=== PATIENT | male | born 1950 | race Caucasian/White ===

== ENCOUNTER 2016-12-26 07:50 | Emergency (ER) | payer MEDICARE ==
[2016-12-26 07:56] VITALS: BP 152/77
--- NOTE | 2016-12-26 08:12 | UC ---
General HPI - HPI Summary HPI Summary: complaint of rash on left flank that he noticed yesterday rash is slightly itchy can't recall any insect bite denies fever or fatigue - History of Current Complaint Chief Complaint: UCRas Stated Complaint: BUG BITE W/BULLSEYE RASH Time Seen by Provider: 12/26/16 08:06 - Allergy/Home Medications Allergies/Adverse Reactions: Allergies Allergy/AdvReac Type Severity Reaction Status Date / Time apples Allergy Mild Rash Uncoded 12/26/16 07:57 carrots Allergy Mild See Comment Uncoded 12/26/16 07:57 PMH/Surg Hx/FS Hx/Imm Hx Previously Healthy: Yes - seasonal allergies - Surgical History Surgical History: Yes - acousticneuroma - Family History Known Family History: Positive: Hypertension - Social History Occupation: Employed Full-time Lives: With Family Alcohol Use: Rare Substance Use Type: None Smoking Status (MU): Never Smoked Tobacco Have You Smoked in the Last Year: No Review of Systems Constitutional: Negative Skin: Rash Eyes: Negative ENT: Negative Respiratory: Negative Cardiovascular: Negative Gastrointestinal: Negative Genitourinary: Negative Motor: Negative Neurovascular: Negative Musculoskeletal: Negative Neurological: Negative Psychological: Negative All Other Systems Reviewed And Are Negative: Yes Physical Exam Triage Information Reviewed: Yes Appearance: Well-Nourished, Thin Vital Signs: Initial Vital Signs Temp 98.1 F 12/26/16 07:54 Pulse 79 12/26/16 07:54 Resp 20 12/26/16 07:54 BP 152/77 12/26/16 07:54 Pulse Ox 98 12/26/16 07:54 Vital Signs Reviewed: Yes Eyes: Positive: Conjunctiva Clear ENT: Positive: Pharynx normal, TMs normal Neck: Positive: No Lymphadenopathy Respiratory: Positive: Lungs clear, Normal breath sounds, No respiratory distress Cardiovascular: Positive: RRR, No Murmur, Pulses Normal Abdomen Description: Positive: Nontender, Soft Bowel Sounds: Positive: Present Musculoskeletal: Positive: No Edema Neurological: Positive: Alert Psychological Exam: Normal Skin: Positive: rashes - [id number] bulleye rash on left flank Course/Dx - Course Course Of Treatment: exam completed. rash-erythema migrans- will start course of doxycycline and patient will followup with PCP - Differential Dx - Multi-Symptom Differential Diagnoses: Other - erythema migrans Provider Diagnoses: erythema migrans. elevated blood pressure Discharge - Discharge Plan Condition: Stable Disposition: HOME Prescriptions: DOXYcycline CAP(*) [DOXYcycline 100MG CAP(*)] 100 mg PO BID #42 cap Patient Education Materials: Lyme Disease (ED), Tick Bite (ED) Referrals: Logan Cedeno MD [Primary Care Provider] - Additional Instructions: Please start antibiotic as directed Increase fluids and rest Take acetaminophen or ibuprofen for fever or pain Please review your discharge instructions. If your symptoms do not improve please call your primary care provider or return to urgent care. Your blood pressure is elevated. Please contact your primary care provider within 1 -4 weeks for further evaluation.
== END 2016-12-26 08:23 | disposition home or self-care (01) ==
LOC: UCEAST 07:50
DX: A26.0 Cutaneous erysipeloid (principal); R03.0 Elevated blood-pressure reading, without diagnosis of hypertension
CPT/HCPCS: 99212; G0463

== ENCOUNTER 2018-05-27 11:23 | Emergency (ER) | payer MEDICARE ==
--- NOTE | 2018-05-27 11:41 | UC ---
Eye Complaint HPI - HPI Summary HPI Summary: 68 y/o male presents to the urgent care c/o Rt lower eyelid w/ redness and tender at touch since yesterday. Pt is concerned about conjunctivitis since he has a wedding tomorrow. pain at touch in mild 2/10 and associated w/ discrete swelling and mild nasal clear discharge. He has Hx o seasonal allergies. Pt denies fever, FLEMING, eye discharge, photophobia, dizziness, SOB, chest pain, abdominal pain, N/V/D. - History of Current Complaint Stated Complaint: EYE ISSUE Time Seen by Provider: 05/27/18 11:39 Hx Obtained From: Patient Onset/Duration: Gradual Onset, Lasting Days - 1 day, Still Present, Worse Since - today Timing: Constant Severity Initially: Mild Severity Currently: Mild Pain Intensity: 2 Pain Scale Used: 0-10 Numeric Location of Injury: Eye Lid (lower) - RT lower eyelid Character: Dull Aggravating Factor(s): Other - touch Alleviating Factor(s): Nothing Associated Signs And Symptoms: Positive: Swelling - mild. Negative: Photophobia , Drainage (Clear), Drainage (Purulent), Vision Impairment Bilateral, Fever - Risk Factors Penetrating Injury Risk Factor: Negative Globe Rupture Risk Factors: Negative Acute Glaucoma Risk Factors: Negative Optic Artery Occlusion Risk Factors: Negative - Allergies/Home Medications Allergies/Adverse Reactions: Allergies Allergy/AdvReac Type Severity Reaction Status Date / Time apples Allergy Mild Rash Uncoded 05/27/18 11:44 carrots Allergy Mild See Comment Uncoded 05/27/18 11:44 PMH/Surg Hx/FS Hx/Imm Hx Previously Healthy: Yes Other Respiratory History: seasonal allergies. 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 - Surgical History Surgical History: Yes Surgery Procedure, Year, and Place: GAMMA KNIFE - Family History Known Family History: Positive: Cardiac Disease, Hypertension Family History: lymphoma, endometrial cancer - Social History Occupation: Retired Lives: With Family Alcohol Use: Rare Substance Use Type: None Smoking Status (MU): Never Smoked Tobacco Have You Smoked in the Last Year: No Review of Systems All Other Systems Reviewed And Are Negative: Yes Constitutional: Positive: Negative Skin: Positive: Negative Eyes: Positive: Eye Redness - RTlower eyelid red and painful ENT: Positive: Nasal Discharge - clear Respiratory: Positive: Negative Cardiovascular: Positive: Negative Gastrointestinal: Positive: Negative Genitourinary: Positive: Negative Motor: Positive: Negative Neurovascular: Positive: Negative Musculoskeletal: Positive: Negative Neurological: Positive: Negative Psychological: Positive: Negative Is Patient Immunocompromised?: No Physical Exam - Summary Physical Exam Summary: Vital Signs Reviewed: Yes General: Well appearing, well nourished male in no apparent pain distress Eyes: Positive: Conjunctiva Inflamed - Visual acuity: WNL,Visual guillen: full to confrontation.mild periorbital soft tissue swellingat the medial aspect of RTlower eyelid with erythema and white small pustule in the medial side of eyelid, tender to palpation. PERRLA, EOMI intact w/out limitation or complaint of pain. eyelashes clear. mild tearing and clear drainage observed. No ciliary flush. No chemosis, No photophobia. Normal fundoscopic exam; no proptosis, exophthalmos, nystagmus. ENT: Positive: Normal ENT inspection, Hearing grossly normal, Pharynx normal, Nasal congestion, Nasal drainage - clear, TMs normal - B/L external ear canal clear , TM's WNL. Negative: Tonsillar swelling, Tonsillar exudate Neck: Positive: Supple, Nontender, No Lymphadenopathy Respiratory: Positive: Chest nontender, Lungs clear, Normal breath sounds, No respiratory distress Cardiovascular: Positive: RRR, No Murmur, Pulses Normal, Brisk Capillary Refill Abdomen Description: Positive: Nontender, No Organomegaly, Soft. Negative: CVA Tenderness (R), CVA Tenderness (L) Bowel Sounds: Positive: Present Musculoskeletal: Positive: Strength Intact, ROM Intact, No Edema Neurological Exam: Normal Psychological Exam: Normal Skin Exam: Normal Triage Information Reviewed: Yes Eye Complaint Course/Dx - Course Course Of Treatment: 68 y/o male presents to the urgent care c/o Rt lower eyelid w/ redness and tender at touch since yesterday. Pt is concerned about conjunctivitis since he has a wedding tomorrow. pain at touch in mild 2/10 and associated w/ discrete swelling and mild nasal clear discharge. He has Hx o seasonal allergies. Pt denies fever, FLEMING, eye discharge, photophobia, dizziness, SOB, chest pain, abdominal pain, N/V/D.Hx obtained.Pt with a RT medial aspect of lower eyelid w/ an internal hordeolum on examination. Pt Rx Bacitracin Ophthalmic Ointment. Mother advised to apply warm compresses and massage the eye with gentle pressure 4-5 times for 10-15min throughout the day. Then apply ABX and if not improvement of symptoms to f/u with supervisor ski production Dr Garcia for further evaluation and treatment. Your BP is elevated today. please decrease salt in your diet, monitor BP and if it continues to be elevated please f/u with your PCP for further management. D/C instructions explained. Pt understood and agreed with plan of care. - Differential Dx/Diagnosis Differential Diagnosis/HQI/PQRI: Conjunctivitis, Corneal Abrasion, Periorbital Cellulitis, Orbital Cellulitis Provider Diagnosis: Hordeolum of right lower eyelid, Elevated BP without diagnosis of hypertension Discharge - Sign-Out/Discharge Documenting (check all that apply): Patient Departure - d/c home All imaging exams completed and their final reports reviewed: No Studies - Discharge Plan Condition: Stable Disposition: HOME Prescriptions: Erythromycin OPTH OINT* [Erythromycin 0.5% OPTH OINT*] 1 applic RIGHT EYE TID # 1 ophth.oint Patient Education Materials: Stye (ED), Low-Sodium Diet (ED) Referrals: Mimi Smith MD [Primary Care Provider] - 3 Days Iglesia Garcia MD [Medical Doctor] - If Needed Additional Instructions: 1-Please apply ophthalmic ointment in your RT lower eyelid as directed. Please apply warm compresses and massage the eye with gentle pressure 4-5 times for 10-15min throughout the day 2- If you do not improve or if symptoms worsen please f/u with supervisor ski production Dr Garcia in 3 days for further evaluation and treatment 3- Your BP is elevated today. please decrease salt in your diet, monitor BP and if it continues to be elevated please f/u with your PCP for further management - Billing Disposition and Condition Condition: STABLE Disposition: Home
[2018-05-27 11:44] VITALS: BP 141/80
== END 2018-05-27 12:11 | disposition home or self-care (01) ==
LOC: UCEAST 11:23
DX: H00.012 Hordeolum externum right lower eyelid (principal); R03.0 Elevated blood-pressure reading, without diagnosis of hypertension
CPT/HCPCS: 99212; G0463

== ENCOUNTER 2019-09-24 11:42 | Emergency (ER) | payer MEDICARE ==
[2019-09-24] MEDS ORDERED: NS 0.9% 1000 ML** 1,000 ML IV ONE (11:47)
--- NOTE | 2019-09-24 11:48 | ED ---
Back Pain - HPI Summary HPI Summary: Pt. is a 69 y.o male who presents to the ER for acute onset of right sided flank pain and vomiting that started today. Pt. notes he has had kidney stones in the past and pain feels similar. Denies fever, cough, SOB, CP. No past medical hx. Sxs are moderate in severity. No current modifying factors. - History of Current Complaint Chief Complaint: EDFlankPain Stated Complaint: FLANK PAIN PER PT Time Seen by Provider: 09/24/19 11:46 Hx Obtained From: Patient Pain Intensity: 10 - Allergies/Home Medications Allergies/Adverse Reactions: Allergies Allergy/AdvReac Type Severity Reaction Status Date / Time carrot Allergy Unknown See Comment Verified 09/24/19 12:12 adhesive Allergy Rash Verified 09/24/19 11:44 apple Allergy Rash Verified 09/24/19 12:12 Home Medications: Home Medications Cetirizine* [ZyrTEC 10 MG TAB*] 10 mg PO DAILY 10/11/15 [History Confirmed 09/23] Ondansetron TAB* [Zofran 4 MG Tab*] 4 mg PO Q6H PRN #12 tab 09/24/19 [Rx] Tamsulosin CAP* [Flomax CAP*] 0.4 mg PO DAILY #5 cap 09/24/19 [Rx] oxyCODONE/Acetamin 5/325 MG* [Percocet 5/325 TAB*] 1 tab PO Q6H PRN 3 Days #12 tab MDD 4 09/24/19 [Rx] PMH/Surg Hx/FS Hx/Imm Hx Previously Healthy: Yes Endocrine/Hematology History: Denies: Hx Diabetes Cardiovascular History: Denies: Hx Hypertension, Hx Pacemaker/ICD Respiratory History: Denies: Hx Asthma History: Denies: Hx Renal Disease Musculoskeletal History: Denies: Hx Osteoporosis Sensory History: Reports: Hx Hearing Aid Psychiatric History: Denies: Hx Panic Disorder - Surgical History Surgery Procedure, Year, and Place: GAMMA KNIFE Infectious Disease History: No Infectious Disease History: Reports: Hx Shingles Denies: Traveled Outside the [place] in Last 30 Days - Family History Known Family History: Positive: Cardiac Disease, Hypertension, Non-Contributory Family History: lymphoma, endometrial cancer - Social History Occupation: Retired Lives: Alone Alcohol Use: Rare Substance Use Type: Reports: None Smoking Status (MU): Never Smoked Tobacco Have You Smoked in the Last Year: No Review of Systems Constitutional: Negative Negative: Fever, Chills Cardiovascular: Negative Negative: Palpitations, Chest Pain Respiratory: Negative Negative: Shortness Of Breath, Cough Positive: Abdominal Pain, Vomiting, Nausea. Negative: Diarrhea Positive: flank pain Neurological/Mental Status: Negative Negative: Weakness, Paresthesia, Numbness All Other Systems Reviewed And Are Negative: Yes Physical Exam Triage Information Reviewed: Yes Vital Signs On Initial Exam: Initial Vitals Temp Pulse Resp BP Pulse Ox 97.6 F 91 16 217/105 99 09/24/19 11:43 09/24/19 11:43 09/24/19 11:43 09/24/19 11:43 09/24/19 11:43 Vital Signs Reviewed: Yes Appearance: Positive: Pain Distress - Pt. lying on bed, in pain but nontoxic. Skin: Positive: Warm, Dry Head/Face: Positive: Normal Head/Face Inspection Eyes: Positive: Normal, EOMI Neck: Positive: Supple Respiratory/Lung Sounds: Positive: Clear to Auscultation, Breath Sounds Present Cardiovascular: Positive: Normal, RRR Abdomen Description: Positive: Nontender, Soft, CVA Tenderness (R) Musculoskeletal: Positive: Normal, Strength/ROM Intact Neurological: Positive: Normal, CN Intact II-III Psychiatric: Positive: Affect/Mood Appropriate Procedures - Sedation Patient Received Moderate/Deep Sedation with Procedure: No Diagnostics - Vital Signs Vital Signs Temp Pulse Resp BP Pulse Ox 09/24/19 11:43 97.6 F 91 16 217/105 99 - Laboratory Result Diagrams: 09/24/19 11:57 09/24/19 11:57 Lab Statement: Any lab studies that have been ordered have been reviewed, and results considered in the medical decision making process. Back Pain Course/Dx - Course Course Of Treatment: Pt. with acute flank pain and N/V. Afebrile. BP elevated. Suspect urolithiasis. Pt. given iv fluids, zofran, toradol, morphine. ECG done at 1218 shows a sinus rhythm of 75bpm, normal axis, appropriate intervals, no STEMI. CT abd/pelvis per radiology: IMPRESSION: There is a 6 mm calculus proximal right ureter at the L3-L4 level causing. moderate degree of right hydronephrosis and proximal hydroureter. Left kidney shows no. hydronephrosis. Labs show minimal elevation in WBC of 11.2. Mildly elevated lactic. U/A negative for infection. On re-exam pt. feeling better and pain is minimal at this time. Case discussed with Dr. Moss. Will plan for dc home to [facility] with urology. Percocet, zofran and flomax rx. Pt. comfortable with dc home. Strainer given. Pt. will return to er for uncontrollable pain/vomiting, fever, or if concerned. Pt. understands and agrees with plan. - Diagnoses Differential Diagnosis/HQI/PQRI: Positive: Renal Colic, Strain, Sprain Provider Diagnoses: Urolithiasis Discharge ED - Sign-Out/Discharge Documenting (check all that apply): Patient Departure - Discharge Plan Condition: Improved Disposition: HOME Prescriptions: Ondansetron TAB* [Zofran 4 MG Tab*] 4 mg PO Q6H PRN #12 tab PRN Reason: Nausea oxyCODONE/Acetamin 5/325 MG* [Percocet 5/325 TAB*] 1 tab PO Q6H PRN 3 Days #12 tab MDD 4 PRN Reason: Pain Tamsulosin CAP* [Flomax CAP*] 0.4 mg PO DAILY #5 cap Patient Education Materials: Kidney Stones (ED) Referrals: Mimi Smith MD [Primary Care Provider] - Mikael Amaro MD [Medical Doctor] - Additional Instructions: Call the urology clinic tomorrow to schedule a follow up appointment if pain persist Rotate between percocet and motrin 400mg every 3 hours for pain control Increase fluids Strain urine Return to ER for uncontrollable pain, vomiting, fever, or if concerned - Billing Disposition and Condition Condition: IMPROVED Disposition: Home
[2019-09-24] MEDS ORDERED: Ondansetron INJ* 2 MG/ML VIAL IV ONE (11:49)
[2019-09-24] MEDS ORDERED: Ketorolac INJ* 30 MG/ML 1 ML VIAL IV PUSH ONE (11:49)
[2019-09-24] MEDS ORDERED: Morphine 4 MG/ML VIAL (1 ml) 4 MG/ML VIAL IV ONE ×2 (11:52→12:43)
[2019-09-24 12:06] LABS: ABS Basophils 0.1 10^3/ul (0-0.2); ABS Lymphocytes 1.1 10^3/ul (1.0-4.8); ABS Monocytes 0.5 10^3/ul (0-0.8); ABS Neutrophils 9.5 10^3/ul (1.5-7.7); Eosinophil % 0.2 %; Hematocrit 45 % (42-52); Hemoglobin 15.1 g/dL (14.0-18.0); Mean Corpuscular HGB Conc 33 g/dL (31-36); Mean Corpuscular Hemoglobin 29 pg (27-31); Mean Corpuscular Volume 87 fL (80-94); Mean Platelet Volume 8.1 fL (7.4-10.4); Platelet Count 223 10^3/uL (150-450); Red Blood Count 5.24 10^6 /uL (4.18-5.48); Red Cell Distribution Width 13 % (10-15); White Blood Count 11.2 10^3/uL (3.5-10.8)
[2019-09-24 12:23] LABS: ALT 14 U/L (7-52); AST 18 U/L (13-39); Albumin 4.1 g/dL (3.2-5.2); Albumin/Globulin Ratio 1.4 (1-3); Alkaline Phosphatase 89 U/L (34-104); Anion Gap 10 mmol/L (2-11); BUN/Creatinine Ratio 17.1 (8-20); Blood Urea Nitrogen 19 mg/dL (6-24); C Reactive Protein < 1.00 mg/L (<8.01); CO2 Carbon Dioxide 25 mmol/L (22-32); Chloride 102 mmol/L (101-111); EGFR Non-African American 65.3 (>60); Glucose 134 mg/dL (70-100); Potassium 4.1 mmol/L (3.5-5.0); Sodium 137 mmol/L (135-145); Total Protein 7.1 g/dL (6.4-8.9)
[2019-09-24 13:11] LABS: Urine Appearance Clear; Urine Bilirubin Negative (Negative); Urine Blood 2+ (Negative); Urine Color Yellow; Urine Glucose Negative (Negative); Urine Ketones Trace (Negative); Urine Nitrite Negative (Negative); Urine Protein Negative (Negative); Urine Specific Gravity 1.013 (1.010-1.030); Urine Urobilinogen Negative (Negative)
[2019-09-24 13:13] LABS: Urine Bacteria Absent (Absent); Urine Red Blood Cell 3+(>10/hpf) (Absent); Urine White Blood Cell Trace(0-5/hpf) (Absent)
[2019-09-24 14:52] VITALS: BP 137/67
== END 2019-09-24 14:51 | disposition home or self-care (01) ==
LOC: ED 11:42
DX: N20.9 Urinary calculus, unspecified (principal); R10.84 Generalized abdominal pain; R11.2 Nausea with vomiting, unspecified
CPT/HCPCS: 36415; 74176; 80053; 81003; 81015; 83605; 85025; 86140; 87086; 93005; 96361; 96374; 96375; 96376; 99283; J1885; J2270; J2405

== ENCOUNTER 2019-09-29 08:26 | Day surgery (SDC) | payer MEDICARE ==
--- NOTE | 2019-09-28 09:31 | HP ---
CC: Dr. Smith * ADMITTING HISTORY AND PHYSICAL: DATE OF ADMISSION: 09/29/19 ADMITTING DIAGNOSES: 1. Calculus, right proximal ureter. 2. Right hydronephrosis. PLANNED PROCEDURE: Right ureteroscopy, possible laser and stent insertion ( possibly to be followed in the near future by shockwave lithotripsy). SURGEON: Dr. Richmond. HISTORY OF PRESENT ILLNESS: Daniel Garcia is a 69-year-old gentleman who has had episodic right flank pain and nausea for the last 3 to 4 days. He had initially been evaluated in the emergency department and a CT had revealed an obstructing 6 mm calculus in the proximal right ureter. He has been managed conservatively and continues to have episodic flank pain and is now being brought in for further management of the calculus. Because of the proximal location of the calculus, I have explained to him that he may end up requiring a 2-stage procedure with initial stent insertion to be followed later on by shockwave lithotripsy or laser lithotripsy. PAST MEDICAL HISTORY: Significant for renal calculus affecting the left kidney about 7 to 8 years ago. PAST SURGICAL HISTORY: Negative. MEDICATIONS ON ADMISSION: Flonase p.r.n. ALLERGIES: No known drug allergies. FAMILY HISTORY: His father and 2 younger brothers all have had kidney stones. SOCIAL HISTORY: Smoking history: He is a nonsmoker. REVIEW OF SYSTEMS: He is otherwise in excellent health. There is no history of diabetes mellitus or any other major systemic illness. He is fairly active physically and denies any chest pain or shortness of breath. PHYSICAL EXAMINATION GENERAL: Reveals a pleasant, healthy-appearing gentleman. VITAL SIGNS: Blood pressure is 110/80, pulse 83 per minute and regular, temperature 96.6, oxygen saturation 98% on room air. LUNGS: Clear bilaterally. CARDIOVASCULAR: Regular rate and rhythm. S1, S2. ABDOMEN: Soft with right flank tenderness. IMPRESSION: A 69-year-old gentleman with a calculus in the proximal right ureter causing episodic right flank pain and nausea and right hydronephrosis. PLAN: Planned procedure is right ureteroscopy, possible laser and stent insertion. [id number]/CPS #: [id number] MTDD
[~2019-09-29 08:26] MED LIST: Buffered Lidocaine 1% SYRIN* 1 ML/SYRINGE INTRADERM ONE; Dexamethasone IV* 4 MG/ML 1 ML (4 MG) IV SLOW PU ONE; Famotidine IV* 10 MG/ML 2 ML (20 mg) IV ONE; Lactated Ringers 1000 ML Bag* 1,000 ML IV SCH
[2019-09-29] MEDS ORDERED: Iohexol 180 (CONTRAST) 10 ML SDV IV ONE (08:56)
[2019-09-29] MEDS ORDERED: Dexamethasone IV* 4 MG/ML 1 ML (4 MG) ONE (09:07)
[2019-09-29] MEDS ORDERED: cefTRIAXone(*) 2 GM ADDV.VIAL IVPB ONE (09:07)
[2019-09-29] MEDS ORDERED: Buffered Lidocaine 1% SYRIN* 1 ML/SYRINGE INTRADERM ONE (09:08)
[2019-09-29] MEDS ORDERED: Famotidine IV* 10 MG/ML 2 ML (20 mg) ONE (09:08)
[2019-09-29] MEDS ORDERED: fentaNYL* 50 MCG/ML 2 ML VIAL (100 MCG VIAL) ONE (09:24)
[2019-09-29] MEDS ORDERED: Midazolam* 1 MG/ML 2 ML VIAL (2 MG) ONE ×2 (09:24→09:54)
[2019-09-29] MEDS ORDERED: Chloroprocaine 2%* 20 ML VIAL ONE (09:26)
[2019-09-29] MEDS ORDERED: Propofol* 10 MG/ML 20 ML BTL ONE (10:25)
[2019-09-29] MEDS ORDERED: Ondansetron INJ* 2 MG/ML VIAL IV PRN (10:41)
[2019-09-29] MEDS ORDERED: Naloxone* 0.4 MG/ML 1 ML VIAL IV PRN (10:41)
[2019-09-29] MEDS ORDERED: fentaNYL* 50 MCG/ML 2 ML VIAL (100 MCG VIAL) IV PRN (10:41)
[2019-09-29] MEDS ORDERED: Ketorolac INJ* 30 MG/ML 1 ML VIAL IV PRN (10:41)
[2019-09-29] MEDS ORDERED: Tamsulosin CAP* 0.4 MG ONE (10:58)
--- NOTE | 2019-09-29 11:43 | OP ---
CC: Dr. Mimi Smith * DATE OF OPERATION: 09/29/19 - [facility] DATE OF : 46 SURGEON: Dustin Richmond MD ANESTHESIOLOGIST: Dr. Sands. ANESTHESIA: Spinal. PRE-OP DIAGNOSES: 1. Calculus, right proximal ureter. 2. Right hydronephrosis. POST-OP DIAGNOSES: 1. Calculus, right proximal ureter. 2. Right hydronephrosis. OPERATIVE PROCEDURES: Cystoscopy, right retrograde pyelogram, right ureteroscopy and stone manipulation, and right stent insertion. COMPLICATIONS: None. POSTOPERATIVE CONDITION: Stable. STENT USED: 7-Austrian stent, right ureter. OPERATIVE FINDINGS: 1. Moderately enlarged prostate with increased vascularity noted at bladder neck. 2. Moderately trabeculated bladder. 3. [id number] hydronephrosis with a fairly narrow right ureter noted. INDICATIONS: Daniel Garcia Jr. is a 69-year-old gentleman, who has had episodic right flank pain secondary to an obstructing calculus in the right proximal ureter. DESCRIPTION OF PROCEDURE: After induction of spinal anesthesia, the patient was placed in dorsal lithotomy position. Sequential compression devices were in place and functioning. Initial cystoscopy revealed a normal appearing urethra , moderately enlarged prostate with increased vascularity at the bladder neck and trigone. The bladder is moderately trabeculated with no evidence of any suspicious lesions noted. I noted that the orifice of the right ureter was fairly narrow. A guidewire was introduced into it and I actually had to use open-ended catheter just to dilate the orifice initially. Retrograde pyelogram revealed [id number] right hydronephrosis with a dilated proximal ureter. A 6-Austrian semi-rigid ureteroscope was introduced and advanced under direct vision. The ureteroscope was advanced into the distal ureter, which was extremely narrow and considering that the calculus was proximal, I did not think it would be feasible to easily do a ureteroscopy without traumatizing the ureter. The ureteroscope was carefully withdrawn under vision and I elected to proceed a 7-Austrian stent, which was successfully placed under fluoroscopic monitoring with good proximal and distal positioning obtained. My feeling is that the calculus likely migrated proximally with the ureteroscopy and irrigation and my plan is to obtain an x-ray to assess that. A Mason catheter was placed for temporary bladder drainage. The patient tolerated the procedure satisfactorily and was transferred back to the recovery area in stable condition. [id number]/CPS #: [id number] MTDD
[2019-09-29 12:47] VITALS: BP 163/91
== END 2019-09-29 13:42 | disposition home or self-care (01) ==
LOC: OR 08:26
PROVIDERS: ATTEND Urology
DX: N13.2 Hydronephrosis with renal and ureteral calculous obstruction (principal); N40.0 Benign prostatic hyperplasia without lower urinary tract symptoms; N32.89 Other specified disorders of bladder; Z87.442 Personal history of urinary calculi; Z87.898 Personal history of other specified conditions
CPT/HCPCS: 74018; 74420; C1876; J0696; J1100; J2250; J2400; J2704; J3010

== ENCOUNTER 2019-10-09 09:35 | Day surgery (SDC) | payer MEDICARE ==
[~2019-10-09 09:35] MED LIST changes: +Acetaminophen TAB* 325 MG PO ONE; -Dexamethasone IV* 4 MG/ML 1 ML (4 MG) IV SLOW PU ONE
[2019-10-09] MEDS ORDERED: Acetaminophen TAB* 325 MG ONE (10:33)
[2019-10-09] MEDS ORDERED: Famotidine IV* 10 MG/ML 2 ML (20 mg) ONE (10:34)
[2019-10-09] MEDS ORDERED: cefTRIAXone(*) 2 GM ADDV.VIAL IVPB ONE (10:34)
[2019-10-09] MEDS ORDERED: Buffered Lidocaine 1% SYRIN* 1 ML/SYRINGE INTRADERM ONE (10:34)
[2019-10-09] MEDS ORDERED: DiMENhydriNATE IV* 50 MG/ML VIAL IV PUSH PRN (11:11)
[2019-10-09] MEDS ORDERED: Naloxone* 0.4 MG/ML 1 ML VIAL IV PRN (11:11)
[2019-10-09] MEDS ORDERED: HYDROcodone/ACETAMIN 5-325 MG* 1 TAB PO PRN (11:11)
[2019-10-09] MEDS ORDERED: fentaNYL* 50 MCG/ML 2 ML VIAL (100 MCG VIAL) IV PRN (11:11)
[2019-10-09] MEDS ORDERED: Ondansetron INJ* 2 MG/ML VIAL IV PRN (11:11)
[2019-10-09] MEDS ORDERED: Chloroprocaine 2%* 20 ML VIAL ONE (13:32)
[2019-10-09] MEDS ORDERED: Midazolam* 1 MG/ML 2 ML VIAL (2 MG) ONE ×2 (13:32)
[2019-10-09] MEDS ORDERED: fentaNYL* 50 MCG/ML 2 ML VIAL (100 MCG VIAL) ONE (13:32)
[2019-10-09] MEDS ORDERED: Propofol* 10 MG/ML 20 ML BTL ONE (13:57)
--- NOTE | 2019-10-09 15:16 | OP ---
OPERATIVE REPORT: DATE OF OPERATION: 10/09/19 - [facility] DATE OF : 46 SURGEON: Dustin Richmond MD ANESTHESIOLOGIST: Dr. Love. ANESTHESIA: Spinal. PRE-OP DIAGNOSIS: Right renal calculus. POST-OP DIAGNOSIS: Calculus, right proximal ureter. OPERATIVE PROCEDURE: Shockwave lithotripsy of calculus right ureter. COMPLICATIONS: None. POSTOPERATIVE CONDITION: Stable. INDICATIONS: Daniel Garcia Jr. is a 69-year-old gentleman who had undergone urgent stent insertion for an obstructing calculus in the proximal right ureter. The postoperative x-ray had suggested that the calculus had moved up into the kidney and he is now being brought in for shockwave lithotripsy. DESCRIPTION OF PROCEDURE: After induction of spinal anesthesia, the patient was placed on lithotripsy table in supine position. Fluoroscopy revealed that the calculus had moved back into the proximal right ureter adjacent to the stent. This was localized using fluoroscopy and shockwave lithotripsy was commenced at a rate of 60 shocks per minute. Periodic imaging revealed good localization and fragmentation and 2000 shocks were administered. The patient tolerated the procedure satisfactorily and was transferred back to the recovery area in stable condition. [id number]/CPS #: [id number] [facility]
[2019-10-09 15:53] VITALS: BP 163/89
== END 2019-10-09 17:08 | disposition home or self-care (01) ==
LOC: OR 09:35
PROVIDERS: ATTEND Urology
DX: N20.1 Calculus of ureter (principal)
CPT/HCPCS: 74018; A9270-GY; J0696; J2250; J2400; J2704; J3010